=== PATIENT | female | born 1945 | race Caucasian/White ===

== ENCOUNTER 2023-08-19 22:14 | Emergency (ER) | payer OTHER ==
[~2023-08-19] VITALS: Ht 167.6 cm; Wt 78.0 kg
[2023-08-19 22:20] VITALS: BP 150/77; PULSE 86; RESP 17; TEMP 97.7; O2SAT 98
== END 2023-08-19 22:35 | disposition left against medical advice (07) ==
LOC: MED 22:14
DX: R25.1 Tremor, unspecified (principal); Z53.21 Procedure and treatment not carried out due to patient leaving prior to being seen by health care provider
CPT/HCPCS: 99281

== ENCOUNTER 2024-03-26 18:54 | Emergency (ER) | payer OTHER ==
[~2024-03-26] VITALS: Ht 165.1 cm; Wt 73.0 kg
[2024-03-26 19:13] VITALS: BP 135/54; PULSE 91; RESP 16; TEMP 97.8; O2SAT 98
[2024-03-26] MEDS: ACETAMINOPHEN EXTRA STRENGTH 500 MG TAB PO ONE (20:06)
[2024-03-26] MEDS: diazePAM 5 MG TAB PO ONE (20:07)
[2024-03-26 20:13] LABS: BASOPHILS % (AUTO) 0.5 % (0.0-2.0); EOSINOPHILS # (AUTO) 0.1 K/uL (0-0.4); EOSINOPHILS % (AUTO) 1.2 % (0.0-4.0); HEMATOCRIT 37.4 % (36-48); HEMOGLOBIN 12.4 g/dL (12.0-16.0); LYMPHOCYTES # (AUTO) 1.9 K/uL (2.5-16.5); LYMPHOCYTES % (AUTO) 28.8 % (20.5-51.1); MEAN CORPUSCULAR HEMOGLOBIN 30 pg (27-31); MEAN CORPUSCULAR HGB CONC 33 g/dL (33-37); MEAN CORPUSCULAR VOLUME 91.5 fL (80-94); MONOCYTES # (AUTO) 0.4 K/uL (0.8-1.0); MONOCYTES % (AUTO) 5.6 % (1.7-9.3); NEUTROPHILS # (AUTO) 4.1 K/uL (1.8-7.7); NEUTROPHILS % (AUTO) 63.9 % (42.2-75.2); PLATELET COUNT (AUTO) 215 K/uL (140-450); RED BLOOD CELL COUNT(AUTO) 4.09 MIL/uL (4.20-5.40); RED CELL DISTRIBUTION WIDTH 12.9 % (11.6-13.7); WHITE BLOOD COUNT (AUTO) 6.5 K/uL (4.8-10.8)
[2024-03-26 20:34] LABS: ALANINE AMINOTRANSFERASE 17 U/L (12-78); ALBUMIN 3.5 g/dL (3.4-5.0); ALKALINE PHOSPHATASE 52 U/L (50-136); ASPARTATE AMINOTRANSFERASE 10 U/L (15-37); BILIRUBIN,DIRECT 0.1 mg/dL (0.0-0.3); LIPASE 30 U/L (16-77); TOTAL BILIRUBIN 0.5 mg/dL (0.0-1.0); TOTAL PROTEIN, SERUM 7.1 g/dL (6.4-8.2)
[2024-03-26] MEDS: MORPHINE SULFATE 4 MG/ML SYR IVP ONE (21:37)
[2024-03-27] MEDS ORDERED: CYCL-711 PO ×2 (01:13→12:11)
[2024-03-27] MEDS ORDERED: ACET-10509 PO ×2 (01:13→12:11)
[2024-03-27 01:28] VITALS: BP 100/42; PULSE 78; RESP 15; TEMP 98; O2SAT 95
== END 2024-03-27 01:26 | disposition home or self-care (01) ==
LOC: MED 18:54
DX: R07.89 Other chest pain (principal); E11.9 Type 2 diabetes mellitus without complications; I10 Essential (primary) hypertension; Z90.49 Acquired absence of other specified parts of digestive tract; Z79.899 Other long term (current) drug therapy; Z88.0 Allergy status to penicillin; Z88.8 Allergy status to other drugs, medicaments and biological substances
CPT/HCPCS: 36415; 71045; 80076; 83690; 84484; 85025; 93005; 96374; 99285; J2270